=== PATIENT | male | born 1950 ===

== ENCOUNTER → 2023-07-15 10:44 | Outpatient (CLI) | payer MEDICARE, SELFPAY ==
--- NOTE | ~2023-07-15 | CT_ITS ---
EXAMINATION: CT shoulder RT wo con DATE: 07/15/2023 11:06 INDICATION: Primary osteoarthritis of the right shoulder TECHNIQUE: High resolution computed tomography (CT) of the right shoulder was performed without intra venous contrast. Additional sagittal and coronal reconstructions were performed. Automated exposure c ontrol and iterative reconstruction technique were employed. The dose-length product was 500.70 mGy-c m. COMPARISON: None FINDINGS: Advanced osteoarthritis at the right glenohumeral joint with remodeling and and loss of bone stock al stephen the superomedial aspect of the humeral head and glenoid with posterior predominance. The latter r esults in poor degree acetabular retroversion. There are large marginal osteophytes along the inferio r humeral head. Small glenohumeral joint effusion and a few loose osteochondral bodies in the anterio r and deep subscapular recesses. Mild right acromioclavicular osteoarthritis. No fracture. No asymmet daly muscle atrophy of the musculature of the shoulder girdle, specifically of the rotator cuff muscle s. No pathologically enlarged right axillary or hilar lymphadenopathy. Visualized portions of the rig ht lung are clear. IMPRESSION: 1. Advanced right glenohumeral osteoarthritis. Reviewed, dictated and finalized at location A. [facility]ER
== END ==
DX: M19.011 Primary osteoarthritis, right shoulder (principal)
CPT/HCPCS: 73200